=== PATIENT | male | born 1945 | race African-American/Black ===

== ENCOUNTER 2017-08-29 21:20 | Emergency (ER) | payer MEDICARE ==
[~2017-08-29] VITALS: Ht 182.9 cm; Wt 110.0 kg
[2017-08-29 21:24] VITALS: BP 171/82; PULSE 104; RESP 18; TEMP 101.8; O2SAT 96
[2017-08-29] MEDS ORDERED: ACETAMINOPHEN 325 MG TAB PO ONE (21:45)
[2017-08-29] MEDS ORDERED: ONDANSETRON HCL 4 MG/2 ML VIAL IV PUSH ONE (21:45)
--- NOTE | 2017-08-29 21:51 | PD ---
HPI Chief Complaint: Cold / Flu Symptoms Time Seen by Provider: 21:33 Travel History International Travel<30 days: No Contact w/Intl Traveler<30days: No Traveled to known affect area: No History of Present Illness HPI 72-year-old male with history of CHF with unknown EF, CPAP use at night, sleep apnea, coronary artery disease, CVA in the past, presents with family members by private vehicle for evaluation. He has had a cough and congestion for the past 3 days. Initially the cough was dry. He started having a decreased appetite yesterday. He traveled from [place] to the [facility] yesterday with his family members. Today he developed worsening symptoms with fevers, chills, myalgias, abdominal pain, nausea, and this is what prompted evaluation. He reports the cough is not productive with some clear and yellow sputum. He denies vomiting, diarrhea, flank pain, dysuria, shortness of breath , sore throat, rash. No sick contacts. No aggravating or alleviating factors. He has no other complaints at this time. PFSH Past Medical History Congestive Heart Failure: Yes Cerebrovascular Accident: Yes (stroke 2013) Diabetes: Yes Patient Takes Glucophage: No Hypertension: Yes Immunizations Current: Yes Myocardial Infarction: Yes (2 [place]) Tetanus Vaccination: < 5 Years Influenza Vaccination: No Social History Alcohol Use: No Tobacco Use: No Substance Use: No Allergies-Medications (Allergen,Severity, Reaction): Coded Allergies: morphine (Verified Allergy, Severe, Anaphylaxis, 08/29/17) Reported Meds & Prescriptions Reported Meds & Active Scripts Active Zofran Odt (Ondansetron Odt) 4 Mg Tab 4 Mg SL Q6HR PRN Tamiflu (Oseltamivir Phosphate) 75 Mg Cap 75 Mg PO BID 5 Days Reported Gabapentin 300 Mg Cap 300 Mg PO TID Pravastatin 10 Mg Tab 10 Mg PO HS Clonidine (Clonidine HCl) 0.2 Mg Tab 0.2 Mg PO BID Potassium Chloride ER (Potassium Chloride) 20 Meq Tab 20 Meq PO DAILY Aspirin 81 Mg Chew 81 Mg CHEW DAILY Levothyroxine (Levothyroxine Sodium) 25 Mcg Tab 25 Mcg PO DAILY Colona (Hydrocodone-Acetaminophen) 7.5-325 mg Tab 1 Tab PO Q8HR PRN Novolin 70-30 Inj (Insulin Human Isoph/Insulin Regular) 1,000 Unit/10 Ml Vial 70 Units SQ Plavix (Clopidogrel Bisulfate) 75 Mg Tab 75 Mg PO DAILY Lisinopril 5 Mg Tab 5 Mg PO DAILY Lasix (Furosemide) 40 Mg Tab 40 Mg PO BID Metoprolol Tartrate 100 Mg Tab 100 Mg PO BID Omeprazole 10 Mg Cap PO DAILY Flomax (Tamsulosin HCl) 0.4 Mg Cap 0.4 Mg PO HS Review of Systems Except as stated in HPI: all other systems reviewed are Neg Physical Exam Narrative GENERAL: Well-developed well-nourished male in no acute distress. Febrile and tachycardic. SKIN: Warm and dry. HEAD: Atraumatic. Normocephalic. EYES: Pupils equal and round. No scleral icterus. No injection or drainage. ENT: No nasal bleeding or discharge. Mucous membranes pink and moist. NECK: Trachea midline. No JVD. No lymphadenopathy. Neck supple with full range of motion. CARDIOVASCULAR: Regular rate and rhythm. No murmur appreciated. RESPIRATORY: No accessory muscle use. Clear to auscultation. Breath sounds equal bilaterally. No crackles no wheezing no rhonchi GASTROINTESTINAL: Abdomen soft, mild periumbilical tenderness without guarding. No CVA tenderness. MUSCULOSKELETAL: No obvious deformities. Trace edema in the lower extremities bilaterally. NEUROLOGICAL: Awake and alert. No obvious cranial nerve deficits. Motor grossly within normal limits. Normal speech. PSYCHIATRIC: Appropriate mood and affect; insight and judgment normal. Data Data Last Documented VS Vital Signs Date Time Temp Pulse Resp B/P (MAP) Pulse Ox O2 Delivery O2 Flow Rate FiO2 08/30/17 02:39 08/29/17 23:49 98 Room Air 08/29/17 23:49 99.9 08/29/17 21:24 104 18 Orders Orders Sepsis Workup Initiated (08/29/17 ) Complete Blood Count With Diff (08/29/17 21:36) Comprehensive Metabolic Panel (08/29/17 21:36) Lactic Acid Sepsis Protocol (08/29/17 21:36) Urinalysis - C+S If Indicated (08/29/17 21:36) Influenzae A/B Antigen (08/29/17 21:36) Blood Culture (08/29/17 21:36) Chest, Single Ap (08/29/17 21:36) Blood Glucose (08/29/17 21:36) Ecg Monitoring (08/29/17 21:36) Iv Access Insert/Monitor (08/29/17 21:36) Oximetry (08/29/17 21:36) Oxygen Administration (08/29/17 21:36) Ondansetron Inj (Zofran Inj) (08/29/17 21:45) Acetaminophen (Tylenol) (08/29/17 21:45) Electrocardiogram (08/29/17 ) Oseltamivir (Tamiflu) (08/30/17 00:00) Ct Abd/Pel W/O Iv Contrast (08/30/17 ) Dextrose 50% In Dagoberto (Syr) Inj (D50w (Syr (08/30/17 00:45) Dextrose 5% In [place] 1000ml Inj (D5w 1000 (08/30/17 00:45) Dextrose 50% In Dagoberto (Syr) Inj (D50w (Syr (08/30/17 00:41) Ed Discharge Order (08/30/17 01:56) Labs Laboratory Tests Test 08/29/17 22:38 08/29/17 23:00 White Blood Count 7.8 TH/MM3 Red Blood Count 4.43 MIL/MM3 Hemoglobin 12.7 GM/DL Hematocrit 37.6 % Mean Corpuscular Volume 84.9 FL Mean Corpuscular Hemoglobin 28.6 PG Mean Corpuscular Hemoglobin Concent 33.7 % Red Cell Distribution Width 16.9 % Platelet Count 128 TH/MM3 Mean Platelet Volume 8.7 FL Neutrophils (%) (Auto) 81.8 % Lymphocytes (%) (Auto) 7.5 % Monocytes (%) (Auto) 7.7 % Eosinophils (%) (Auto) 1.0 % Basophils (%) (Auto) 2.0 % Neutrophils # (Auto) 6.4 TH/MM3 Lymphocytes # (Auto) 0.6 TH/MM3 Monocytes # (Auto) 0.6 TH/MM3 Eosinophils # (Auto) 0.1 TH/MM3 Basophils # (Auto) 0.2 TH/MM3 CBC Comment AUTO DIFF Differential Comment AUTO DIFF CONFIRMED Platelet Estimate LOW Platelet Morphology Comment ENLARGED Blood Urea Nitrogen 27 MG/DL Creatinine 2.53 MG/DL Random Glucose 48 MG/DL Total Protein 8.0 GM/DL Albumin 3.8 GM/DL Calcium Level 8.6 MG/DL Alkaline Phosphatase 71 U/L Aspartate Amino Transf (AST/SGOT) 29 U/L Alanine Aminotransferase (ALT/SGPT) 28 U/L Total Bilirubin 0.4 MG/DL Sodium Level 141 MEQ/L Potassium Level 3.7 MEQ/L Chloride Level 104 MEQ/L Carbon Dioxide Level 30.2 MEQ/L Anion Gap 7 MEQ/L Estimat Glomerular Filtration Rate 30 ML/MIN Lactic Acid Level 0.7 mmol/L Urine Color YELLOW Urine Turbidity CLEAR Urine pH 5.5 Urine Specific [place] 1.013 Urine Protein 30 mg/dL Urine Glucose (UA) NEG mg/dL Urine Ketones NEG mg/dL Urine Occult Blood SMALL Urine Nitrite NEG Urine Bilirubin NEG Urine Urobilinogen LESS THAN 2.0 MG/DL Urine Leukocyte Esterase NEG Urine RBC 4 /hpf Urine WBC LESS THAN 1 /hpf Urine Hyaline Casts 1 /lpf Urine Mucus FEW /lpf Microscopic Urinalysis Comment CATH-CULT NOT IND MDM Medical Decision Making Medical Screen Exam Complete: Yes Emergency Medical Condition: Yes Medical Record Reviewed: Yes Differential Diagnosis Influenza, pneumonia, appendicitis, colitis, diverticulitis, dehydration, sepsis , bronchitis, empyema Narrative Course The patient will be placed on ECG monitoring pulse oximetry. 12-lead EKG will be obtained. Plan is for lab work, blood cultures, influenza antigen, chest x- ray, CT abdomen and pelvis. He will be given Tylenol, Zofran. 2300: At the end of my shift the patient was signed out pending lab work, imaging studies. Scripts Ondansetron Odt (Zofran Odt) 4 Mg Tab 4 MG SL Q6HR Y for Nausea/Vomiting, #7 TAB 0 Refills Prov: Kell Nash MD 08/30/17 Oseltamivir (Tamiflu) 75 Mg Cap 75 MG PO BID for Mgmt Viral Infection for 5 Days, #10 CAP 0 Refills Prov: Kell Nash MD 08/30/17 Cameron Newman Aug 29, 2017 21:50
--- NOTE | 2017-08-29 22:21 | RADRPT ---
EXAM DATE/TIME: 08/29/2017 22:08 [facility] COMPARISON: No previous studies available for comparison. INDICATIONS : Cough, congestion, and shortness of breath. MEDICAL HISTORY : Myocardial infarction. SURGICAL HISTORY : Cardiac stent. ENCOUNTER: Initial ACUITY: 3 days PAIN SCORE: 0/10 LOCATION: chest FINDINGS: The lungs are clear without infiltrate, nodule, or mass. There is no appreciable pleural effusion fo r technique. Heart and mediastinum are unremarkable. CONCLUSION: No acute cardiopulmonary disease. Elijah Rainey MD on August 29, 2017 at 22:19 Board Certified Radiologist. This report was verified electronically.
[2017-08-29 23:13] LABS: AUTOMATED NEUTROPHIL # 6.4 TH/MM3 (1.8-7.7); BASOPHIL # 0.2 TH/MM3 (0-0.2); EOSINOPHIL # 0.1 TH/MM3 (0-0.4); HEMATOCRIT 37.6 % (39.0-51.0); HEMOGLOBIN 12.7 GM/DL (13.0-17.0); LYMPH % 7.5 % (9.0-44.0); LYMPHOCYTE # 0.6 TH/MM3 (1.0-4.8); MEAN CELL VOLUME 84.9 FL (80.0-100.0); MEAN CORPUSCULAR HEMOGLOBIN 28.6 PG (27.0-34.0); MEAN CORPUSCULAR HGB CONC 33.7 % (32.0-36.0); MEAN PLATELET VOLUME 8.7 FL (7.0-11.0); MONO % 7.7 % (0.0-8.0); MONOCYTE # 0.6 TH/MM3 (0-0.9); NEUT % 81.8 % (16.0-70.0); PLATELET COUNT 128 TH/MM3 (150-450); RED BLOOD COUNT 4.43 MIL/MM3 (4.50-5.90); RED CELL DISTRIBUTION WIDTH 16.9 % (11.6-17.2); WHITE BLOOD COUNT 7.8 TH/MM3 (4.0-11.0)
--- NOTE | 2017-08-29 23:34 | PD ---
Physical Exam Date Seen by Provider: Aug 29, 2017 Time Seen by Provider: 23:33 Narrative GENERAL: Well-developed well-nourished male no acute distress or respiratory distress SKIN: Warm and dry. HEAD: Normocephalic. EYES: No scleral icterus. No injection or drainage. NECK: Supple, trachea midline. No JVD or lymphadenopathy. CARDIOVASCULAR: Regular rate and rhythm without murmurs, gallops, or rubs. RESPIRATORY: Breath sounds equal bilaterally. No accessory muscle use. GASTROINTESTINAL: Abdomen soft, non-tender, nondistended. MUSCULOSKELETAL: No cyanosis, or edema. BACK: Nontender without obvious deformity. No CVA tenderness. Data Data Last Documented VS Vital Signs Date Time Temp Pulse Resp B/P (MAP) Pulse Ox O2 Delivery O2 Flow Rate FiO2 08/29/17 23:49 98 Room Air 08/29/17 23:49 99.9 08/29/17 21:24 104 18 Orders Orders Sepsis Workup Initiated (08/29/17 ) Complete Blood Count With Diff (08/29/17 21:36) Comprehensive Metabolic Panel (08/29/17 21:36) Lactic Acid Sepsis Protocol (08/29/17 21:36) Urinalysis - C+S If Indicated (08/29/17 21:36) Influenzae A/B Antigen (08/29/17 21:36) Blood Culture (08/29/17 21:36) Chest, Single Ap (08/29/17 21:36) Blood Glucose (08/29/17 21:36) Ecg Monitoring (08/29/17 21:36) Iv Access Insert/Monitor (08/29/17 21:36) Oximetry (08/29/17 21:36) Oxygen Administration (08/29/17 21:36) Ondansetron Inj (Zofran Inj) (08/29/17 21:45) Acetaminophen (Tylenol) (08/29/17 21:45) Electrocardiogram (08/29/17 ) Oseltamivir (Tamiflu) (08/30/17 00:00) Ct Abd/Pel W/O Iv Contrast (08/30/17 ) Dextrose 50% In Dagoberto (Syr) Inj (D50w (Syr (08/30/17 00:45) Dextrose 5% In [place] 1000ml Inj (D5w 1000 (08/30/17 00:45) Dextrose 50% In Dagoberto (Syr) Inj (D50w (Syr (08/30/17 00:41) Labs Laboratory Tests Test 08/29/17 22:38 08/29/17 23:00 White Blood Count 7.8 TH/MM3 Red Blood Count 4.43 MIL/MM3 Hemoglobin 12.7 GM/DL Hematocrit 37.6 % Mean Corpuscular Volume 84.9 FL Mean Corpuscular Hemoglobin 28.6 PG Mean Corpuscular Hemoglobin Concent 33.7 % Red Cell Distribution Width 16.9 % Platelet Count 128 TH/MM3 Mean Platelet Volume 8.7 FL Neutrophils (%) (Auto) 81.8 % Lymphocytes (%) (Auto) 7.5 % Monocytes (%) (Auto) 7.7 % Eosinophils (%) (Auto) 1.0 % Basophils (%) (Auto) 2.0 % Neutrophils # (Auto) 6.4 TH/MM3 Lymphocytes # (Auto) 0.6 TH/MM3 Monocytes # (Auto) 0.6 TH/MM3 Eosinophils # (Auto) 0.1 TH/MM3 Basophils # (Auto) 0.2 TH/MM3 CBC Comment AUTO DIFF Differential Comment AUTO DIFF CONFIRMED Platelet Estimate LOW Platelet Morphology Comment ENLARGED Blood Urea Nitrogen 27 MG/DL Creatinine 2.53 MG/DL Random Glucose 48 MG/DL Total Protein 8.0 GM/DL Albumin 3.8 GM/DL Calcium Level 8.6 MG/DL Alkaline Phosphatase 71 U/L Aspartate Amino Transf (AST/SGOT) 29 U/L Alanine Aminotransferase (ALT/SGPT) 28 U/L Total Bilirubin 0.4 MG/DL Sodium Level 141 MEQ/L Potassium Level 3.7 MEQ/L Chloride Level 104 MEQ/L Carbon Dioxide Level 30.2 MEQ/L Anion Gap 7 MEQ/L Estimat Glomerular Filtration Rate 30 ML/MIN Lactic Acid Level 0.7 mmol/L Urine Color YELLOW Urine Turbidity CLEAR Urine pH 5.5 Urine Specific [place] 1.013 Urine Protein 30 mg/dL Urine Glucose (UA) NEG mg/dL Urine Ketones NEG mg/dL Urine Occult Blood SMALL Urine Nitrite NEG Urine Bilirubin NEG Urine Urobilinogen LESS THAN 2.0 MG/DL Urine Leukocyte Esterase NEG Urine RBC 4 /hpf Urine WBC LESS THAN 1 /hpf Urine Hyaline Casts 1 /lpf Urine Mucus FEW /lpf Microscopic Urinalysis Comment CATH-CULT NOT IND MDM Medical Record Reviewed: Yes Supervised Visit with JAM: Yes Interpretation(s) Last Impressions Chest X-Ray 08/29/172135 Signed Impressions: Service Date/Time: Tuesday, August 29, 2017 22:08 - CONCLUSION: No acute cardiopulmonary disease. Elijah Rainey MD Influenza A/B antigen: Influenza A positive Last Impressions Chest X-Ray 08/29/172135 Signed Impressions: Service Date/Time: Tuesday, August 29, 2017 22:08 - CONCLUSION: No acute cardiopulmonary disease. Elijah Rainey MD Vital Signs Date Time Temp Pulse Resp B/P (MAP) Pulse Ox O2 Delivery O2 Flow Rate FiO2 08/29/17 21:24 101.8 104 18 171/82 (111) 96 Room Air Lactic acid: 0.7, not elevated Urinalysis grossly within normal limits CBC with automated differential: Total white cell count is within normal range however 81% neutrophils by automated differential is noted Metabolic panel: Renal insufficiency creatinine 2.53, serum glucose 48 (random glucose 45) patient given amp of D50 with infusion of D5 at 100 cc/h CT ABD/PEL w/o iv contrast: CONCLUSION: 1. 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 2. Lobular appearance of both kidneys with multiple masses noted and incompletely assessed without contrast. 3. Moderate amount of stool in the colon. 4. Atherosclerosis. Jose Mandujano MD on August 30, 2017 at 1:10 Board Certified Radiologist. This report was verified electronically. Differential Diagnosis Shortness of breath febrile illness pneumonia viral syndrome influenza also consider CHF ACS Narrative Course Patient given acetaminophen and Zofran Influenza A positive @ 23:49 T: 99.9F; patient aware of positive flu test is aware that is approximately 48-72 hours into his symptom profile and that he may not benefit from addition of Tamiflu but is desirous of having it started if possible therefore first dose of Tamiflu administered in the emergency department Patient with renal insufficiency therefore CT abdomen pelvis with IV contrast canceled and CT abdomen pelvis without IV contrast was ordered Patient was identified to have serum glucose of 48 and ran a bedside glucose of 45 given an amp of D50 as patient scheduled for imaging of the abdomen and pelvis no oral dietary replacement provided; GCS 15 Patient and family report aware of history of aneurysm aneurysm repair and abnormal kidney findings. Patient given healthy choice meal. Patient is stable for outpatient management with prescription for Tamiflu and Zofran is to continue his chronic medications as chronically prescribed and to follow [employer] diet closely. Patient reports he feels markedly improved after fever control with acetaminophen. Diagnosis Primary Impression: Influenza A Additional Impression: Hypoglycemia associated with type 2 diabetes mellitus Referrals: Primary Care Physician 2 days Patient Instructions: General Instructions Additional Instruction: Take acetaminophen/Tylenol every 4 hours for fever 100.4F or greater Take ibuprofen/Advil/Motrin 600 mg every 6-8 hours as needed for fever 100.4F or greater if able to take this medication Take Tamiflu as prescribed as needed to help attenuate course of flu symptoms Follow-up with your primary care provider Continue chronic medications as chronically prescribed Return to the emergency department for any concerns or change in condition Med/Other Pt SpecificInfo: Prescription(s) given Scripts Ondansetron Odt (Zofran Odt) 4 Mg Tab 4 MG SL Q6HR Y for Nausea/Vomiting, #7 TAB 0 Refills Prov: Kell Nash MD 08/30/17 Oseltamivir (Tamiflu) 75 Mg Cap 75 MG PO BID for Mgmt Viral Infection for 5 Days, #10 CAP 0 Refills Prov: Kell Nash MD 08/30/17 Disposition: 01 DISCHARGE HOME Condition: Stable Kell Nash MD Aug 29, 2017 23:34
[2017-08-29 23:37] LABS: BILIRUBIN, URINE NEG (NEG); BLOOD, URINE SMALL (NEG); GLUCOSE,URINE NEG (NEG); HYALINE CAST, URINE 1 /lpf (RARE); KETONE, URINE NEG (NEG); MUCUS URINE FEW /lpf (OCC); NITRITE,URINE NEG (NEG); PH, URINE 5.5 (5.0-8.5); URINE COLOR YELLOW (YELLW/STRAW); URINE LEUKOCYTE ESTERASE NEG (NEG)
[2017-08-29 23:49] VITALS: TEMP 99.9
[2017-08-30] MEDS ORDERED: OSELTAMIVIR PHOSPHATE 75 MG CAP PO ONE
[2017-08-30] MEDS ORDERED: OMEP10CA PO (00:13)
[2017-08-30] MEDS ORDERED: TAMS5CAP PO (00:13)
[2017-08-30 00:16] LABS: ALBUMIN 3.8 GM/DL (3.4-5.0); ALKALINE PHOSPHATASE 71 U/L (45-117); ALT (GPT) 28 U/L (12-78); AST (GOT) 29 U/L (15-37); BICARBONATE 30.2 MEQ/L (21.0-32.0); BLOOD UREA NITROGEN 27 MG/DL (7-18); CALCIUM 8.6 MG/DL (8.5-10.1); CHLORIDE 104 MEQ/L (98-107); CREATININE 2.53 MG/DL (0.60-1.30); GLOMERULAR FILTRATION RATE 30 ML/MIN (>89); SODIUM (NA) 141 MEQ/L (136-145); TOTAL BILIRUBIN ADULT 0.4 MG/DL (0.2-1.0)
[2017-08-30] MEDS ORDERED: HYDR-3288 PO (00:18)
[2017-08-30] MEDS ORDERED: FURO1TAB60 PO (00:18)
[2017-08-30] MEDS ORDERED: GABA300C5 PO (00:18)
[2017-08-30] MEDS ORDERED: NOVO7030P2 SQ (00:18)
[2017-08-30] MEDS ORDERED: PRAV10TA PO (00:18)
[2017-08-30] MEDS ORDERED: POTA-163 PO (00:18)
[2017-08-30] MEDS ORDERED: PLAV75TA29 PO (00:18)
[2017-08-30] MEDS ORDERED: METO100T PO (00:18)
[2017-08-30] MEDS ORDERED: CLON0.2T PO (00:18)
[2017-08-30] MEDS ORDERED: LISI-519 PO (00:18)
[2017-08-30] MEDS ORDERED: LEVO25TA4 PO (00:18)
[2017-08-30] MEDS ORDERED: ASPI-516 CHEW (00:18)
[2017-08-30 00:29] LABS: GLUCOSE,RANDOM 48 MG/DL (74-106)
[2017-08-30] MEDS ORDERED: DEXTROSE 50% IN WATER 50 ML SYRINGE ONE (00:41)
[2017-08-30] MEDS ORDERED: DEXTROSE 50% IN WATER 50 ML SYRINGE IV PUSH ONE (00:45)
[2017-08-30] MEDS ORDERED: DEXTROSE 5% IN WATE 1000ML INJ 1,000 ML IV SCH (00:45)
--- NOTE | 2017-08-30 01:15 | RADRPT ---
EXAM DATE/TIME: 08/30/2017 00:56 [facility] COMPARISON: CHEST SINGLE AP, August 29, 2017, 22:08. INDICATIONS : Abdomen pain with flu like symptoms. ORAL CONTRAST: No oral contrast ingested. RADIATION DOSE: 19.62 CTDIvol (mGy) MEDICAL HISTORY : Cardiovascular disease. Cerebrovascular disease. Hypertension.Diabetes SURGICAL HISTORY : Abdominal aortic aneurysm repair. ENCOUNTER: Initial ACUITY: 1 day PAIN SCALE: 6/10 LOCATION: Bilateral abdomen TECHNIQUE: Volumetric scanning of the abdomen and pelvis was performed. Using automated exposure control and ad justment of the mA and/or kV according to patient size, radiation dose was kept as low as reasonably achievable to obtain optimal diagnostic quality images. DICOM format image data is available electro nically for review and comparison. FINDINGS: There are atelectatic changes noted at the lung bases. Osseous structures demonstrate degenerative ch anges of the spine. Coronary artery calcification is noted. There is cardiomegaly. No pleural or sunni cardial effusions. Mild hepatic steatosis. Spleen, pancreas, adrenals are unremarkable. The kidneys h ave a lobular contour. There is an exophytic left renal mass measuring 3.2 cm at the upper pole measu ring 18 Hounsfield units as well as an exophytic 2 cm mass at the mid to lower pole laterally measuri ng 25 Hounsfield units. These are incompletely evaluated without contrast. There is a 43 Hounsfield u nits subcentimeter right lower pole renal mass on image 43 likely a hemorrhagic or proteinaceous cyst . 2.3 cm mass is suspected at the midpole right kidney laterally measuring 32 Hounsfield units. Endov ascular stent graft in the aorta status post aneurysm repair. On axial image 61 of series 2 the aneur ysm sac measures 4.7 x 3.7 cm in transverse and AP dimension. There are bilateral common iliac artery aneurysm seen focally in the left upper 4.0 cm, and on the right up to 2.8 cm. Diffuse atherosclerot ic plaquing is noted. There is a large amount of stool within the colon. Urinary bladder unremarkable . No adenopathy. CONCLUSION: 1. 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 2. Lobular appearance of both kidneys with multiple masses noted and incompletely assessed without co ntrast. 3. Moderate amount of stool in the colon. 4. Atherosclerosis. Jose Mandujano MD on August 30, 2017 at 1:10 Board Certified Radiologist. This report was verified electronically.
[2017-08-30] MEDS ORDERED: OSEL75 PO (01:26)
[2017-08-30] MEDS ORDERED: ZOFR4TAB3 SL (01:26)
--- NOTE | 2017-08-30 12:50 | EKG ---
Date Performed: 08/29/2017 Time Performed: 22:21:03 PTAGE: 72 years EKG: Sinus rhythm MODERATE VOLTAGE CRITERIA FOR LVH, CONSIDER NORMAL VARIANT INFERIOR MYOCARDIAL INFARCTION ABNORMAL E CG Nonspecific ST-T change NO PREVIOUS TRACING DOCTOR: Emory Gee Interpretating Date/Time 08/30/2017 12:50:08
== END 2017-08-30 02:40 | disposition home or self-care (01) ==
LOC: NEPC 21:20
DX: J10.1 Influenza due to other identified influenza virus with other respiratory manifestations (principal); E11.649 Type 2 diabetes mellitus with hypoglycemia without coma; I11.0 Hypertensive heart disease with heart failure; I50.9 Heart failure, unspecified; N28.9 Disorder of kidney and ureter, unspecified; R94.31 Abnormal electrocardiogram [ECG] [EKG]; I25.10 Atherosclerotic heart disease of native coronary artery without angina pectoris; I25.2 Old myocardial infarction; Z86.73 Personal history of transient ischemic attack (TIA), and cerebral infarction without residual deficits
CPT/HCPCS: 71045; 74176; 80053; 81001; 83605; 85025; 87040; 87804; 93005; 96361; 96374; 96375; 99285; J2405; J7070